=== PATIENT | female | born 1995 | race Caucasian/White ===

== ENCOUNTER 2018-05-10 10:50 | Emergency (ER) | payer BC ==
--- NOTE | 2018-05-10 11:44 | EDPHY ---
HPI/HX/ROS/PE/MDM Narrative: CLINICAL IMPRESSION: Weakness ASSESSMENT/PLAN: 23-year-old female presents to the emergency department with vague complaints of weakness and feeling foggy after taking 3 days of kvdj-ivi-qpidvco cold medications in conjunction with her SSRI. Patient is concerned she has serotonin syndrome. She has stable vital signs, no hyperthermia, tachycardia, hypertension. She has no muscle spasticity, contractions, tremors, clonus, has a negative Babinski sign, and no reported nausea vomiting or diarrhea. Lab results are reassuring. She received a L of fluid and was feeling improved. Discussed with Dr. Kincaid. Low clinical suspicion for serotonin syndrome. I encouraged patient to stop taking jofd-san-fugtvpf remedies for her URI, follow up with primary care and Psychiatry, warning signs return to ED sooner outlined and discharge. DIFFERENTIAL DX: Differential diagnosis includes but not limited to serotonin syndrome, acute electrolyte abnormality, toxidrome, anemia, dehydration ED PROCEDURES: See lab results below ED COURSE: 1:00 p.m.: Patient's labs reviewed, no acute abnormalities. She was reassessed. She is lying comfortably in bed and sleeping but arouses easily. She remains without tremors, muscle spasms, and clonus. Vital signs are stable. No tachycardia, hypertension or hyperthermia. Will plan to discharge and follow up with PCP and Psychiatry. CHIEF COMPLAINT: I feel weird HPI: 23-year-old female past medical history of depression presents to the emergency department stating"I think I have serotonin syndrome". Patient reports she has been on Zoloft for years for depression. Over the last 3-4 days she has been taking NyQuil and DayQuil for URI symptoms. She states she began feeling foggy , more irritable, and"out of it". She read online that she was not supposed to take these medications together and believes she has serotonin syndrome. Patient denies tremors, chest pain, palpitations, fever, nausea vomiting and diarrhea. She accidentally took 2 Zoloft this morning but otherwise has been taking her prescription as prescribed. She denies any other knzq-koj-szfrjes medications or drugs. She did not drink alcohol. PMH: Depression and anxiety Pertinent Past Surgical History: None reported Family History: Noncontributory Social History: Nonsmoker, denies illicit drugs. REVIEW OF SYSTEMS: All other systems negative Constitutional: No fever, no chills, appetite change. Eyes: No discharge, vision change ENT: No sore throat, congestion, ear pain. Cardiovascular: No chest pain, no palpitations. Respiratory: No cough, no shortness of breath. Gastrointestinal: No abdominal pain, no vomiting, diarrhea. Genitourinary: No hematuria, dysuria, flank pain, pelvic pain Musculoskeletal: No back pain, joint swelling, joint pain, myalgias, spasms Skin: No rashes, color change. Neurological: No headache, dizziness, weakness. PHYSICAL EXAM: General Appearance: Alert, oriented, appropriate, cooperative, NAD, well hydrated, non-toxic appearing, VSS, no hypoxia, no hyperthermia, tachycardia or hypertension. No hyperthermia HEENT: TMs are clear bilaterally no perforation or FB, no injection, no evidence of serous or mucopurulent otitis. Oropharynx clear is no erythema or exudates, no tonsillar hypertrophy or asymmetry. Dentition without abnormality. Eyes: PERRLA, no acute vision change, nystagmus, swelling, discharge, pain or photosensitivity. Conjunctiva pink, no pallor or injection Neck: Supple, nontender, no lymphadenopathy, no midline pain, FROM, no meningismus. Respiratory: There are no retractions, lungs are clear to auscultation. Cardiac: Regular rate and rhythm, no murmurs or gallops. Gastrointestinal: Abdomen is soft, nontender, bowel sounds normal, no masses/ hernia, no rigidity, guarding or focal peritoneal findings. Neurological: Alert and oriented x 3, CN 2-12 grossly intact, normal gait no ataxia, DTR's intact, normal sensation and strength, negative Babinski, no clonus, no spasticity Skin: Warm, dry, no rashes, no nodules on palpation. Musculoskeletal: Extremities are symmetrical, full range of motion, no tenderness, deformity, swelling, or erythema. Psychiatric: Patient is oriented X 3, there is no agitation. MEDICAL DECISION MAKING: Patient was seen independently. Secondary supervising physician at time of evaluation was Dr. Kincaid . Diagnosis: Weakness. New, requires workup Summary: See Assessment and Plan for summary of ED visit Clinical lab tests: ordered / reviewed. Patient Progress: Stable. - Data Points Laboratory Results: Laboratory Results 05/10/18 11:55 05/10/18 11:55 05/10/18 05/10/18 11:55 11:55 WBC 7.06 10^3/uL 10^3/uL (3.80-9.50) RBC 4.13 10^6/uL L 10^6/uL (4.18-5.33) Hgb 14.3 g/dL g/dL (12.6-16.3) Hct 39.9 % % (38.0-47.0) MCV 96.6 fL fL (81.5-99.8) MCH 34.6 pg H pg (27.9-34.1) MCHC 35.8 g/dL g/dL (32.4-36.7) RDW 12.5 % % (11.5-15.2) Plt Count 253 10^3/uL 10^3/uL (150-400) MPV 9.4 fL fL (8.7-11.7) Neut % (Auto) 69.7 % % (39.3-74.2) Lymph % (Auto) 23.9 % % (15.0-45.0) Walton % (Auto) 5.7 % % (4.5-13.0) Eos % (Auto) 0.1 % L % (0.6-7.6) Baso % (Auto) 0.3 % % (0.3-1.7) Nucleat RBC Rel Count 0.0 % % (0.0-0.2) Absolute Neuts (auto) 4.92 10^3/uL 10^3/uL (1.70-6.50) Absolute Lymphs (auto) 1.69 10^3/uL 10^3/uL (1.00-3.00) Absolute Monos (auto) 0.40 10^3/uL 10^3/uL (0.30-0.80) Absolute Eos (auto) 0.01 10^3/uL L 10^3/uL (0.03-0.40) Absolute Basos (auto) 0.02 10^3/uL 10^3/uL (0.02-0.10) Absolute Nucleated RBC 0.00 10^3/uL 10^3/uL (0-0.01) Immature Gran % 0.3 % % (0.0-1.1) Immature Gran # 0.02 10^3/uL 10^3/uL (0.00-0.10) Sodium 140 mEq/L mEq/L (135-145) Potassium 4.4 mEq/L mEq/L (3.3-5.0) Chloride 107 mEq/L mEq/L (97-110) Carbon Dioxide 23 mEq/l mEq/l (22-31) Anion Gap 10 mEq/L mEq/L (6-14) BUN 8 mg/dL mg/dL (7-23) Creatinine 0.6 mg/dL mg/dL (0.6-1.0) Estimated GFR > 60 Glucose 93 mg/dL mg/dL (70-100) Calcium 9.7 mg/dL mg/dL (8.5-10.4) Medications Given: Discontinued Medications Sodium Chloride (Ns) 1,000 mls @ 0 mls/hr IV EDNOW ONE; Wide Open PRN Reason: Protocol Stop: 05/10/18 12:27 Last Admin: 05/10/18 12:30 Dose: 1,000 mls General Time Seen by Provider: 05/10/18 11:18 Initial Vital Signs: Initial Vital Signs Temperature (C) 36.6 C 05/10/18 10:51 Heart Rate 85 05/10/18 10:51 Respiratory Rate 16 05/10/18 10:51 Blood Pressure 110/94 H 05/10/18 10:51 O2 Sat (%) 97 05/10/18 10:51 O2 Delivery Mode Room Air Departure - Departure Disposition: Home, Routine, Self-Care Clinical Impression: Weakness Condition: Good Instructions: Weakness (ED) Additional Instructions: DISCHARGE INSTRUCTIONS FROM YOUR DOCTOR Thank you for visiting our emergency department today. Please keep in mind that discharge from the emergency department does not mean that there is nothing wrong - it simply means that we have not identified an emergency condition that requires further evaluation or treatment in the hospital. You should always plan to follow up with primary care for re-evaluation of your condition in the next 2-3 days. If you have been referred to a specialist, please call as soon as possible (today or tomorrow) to schedule your follow up appointment at the appropriate time. We see no abnormalities to your lab work and vital signs. Physical exam is reassuring. Please stop taking rudd-bxk-qavoetl cold medications. Please follow up with her primary psychiatrist and primary care this week to recheck. Please monitor symptoms closely at home. Return to the emergency department immediately for chest pain, racing heart, tremors or spasms of her muscles, difficulty walking, significant or severe anxiety, vomiting or diarrhea, or any other concerns. People present with illnesses and injuries in different ways, and it is always possible that we have missed something. You may always return for re-evaluation if symptoms worsen or if they are not improving or if you develop new/different symptoms. Again, thank you for choosing our emergency department. We hope that you feel better. Referrals: NONE *PRIMARY CARE P,. [Primary Care Provider] - As per Instructions Trinity Lau MD [[facility] Primary Care Provider] - As per Instructions
[2018-05-10 12:16] LABS: PLATELET COUNT 253 10^3/uL (150-400)
[2018-05-10] MEDS ORDERED: NS 1,000 ML IV ONE (12:26)
[2018-05-10 13:58] VITALS: BP 109/67
== END 2018-05-10 13:59 | disposition home or self-care (01) ==
DX: R53.1 Weakness (principal); E86.9 Volume depletion, unspecified